=== PATIENT | female | born 1965 | race Caucasian/White ===

== ENCOUNTER 2016-10-28 10:44 | Emergency (ER) | payer MEDICAID ==
[~2016-10-28] VITALS: Wt 74.6 kg
[~2016-10-28 10:44] MED LIST: CLIN-73 PO
[2016-10-28] MEDS ORDERED: SODIUM CHLORIDE 0.9% 1L BAG IV* STA (15:42)
[2016-10-28] MEDS ORDERED: IBUPROFEN 600 MG TAB PO ONE (16:00)
[2016-10-28] MEDS ORDERED: CEFTRIAXONE 1 GM/50 ML (PMX) 50 ML IVPB ONE (16:00)
[2016-10-28 16:31] LABS: ADD UMIC YES; URINE BILIRUBIN (Dip) NEGATIVE (NEGATIVE); URINE BLOOD (Dip) TRACE (NEGATIVE); URINE COLOR YELLOW (YELLOW); URINE GLUCOSE (Dip) NEGATIVE (NEGATIVE); URINE KETONES (Dip) NEGATIVE (NEGATIVE); URINE LEUKOCYTE ESTERASE (Dip) NEGATIVE (NEGATIVE); URINE NITRITE (Dip) NEGATIVE (NEGATIVE); URINE TOTAL PROTEIN (Dip) TRACE (NEGATIVE); URINE UROBILINOGEN (Dip) 1.0 E.U./dL (0.1-1.0)
[2016-10-28 16:31] LABS: PROTIME 13.2 Sec (12.2-14.2)
[2016-10-28 16:32] LABS: PARTIAL THROMBOPLASTIN TIME 27.7 Sec (25.0-35.0)
[2016-10-28 16:34] LABS: BASOPHILS % 0.3 % (0.0-2.0); EOSINOPHILS % 0.4 % (0.0-7.0); HEMATOCRIT 31.9 % (37.0-47.0); HEMOGLOBIN 10.6 g/dl (12.0-16.0); LYMPHOCYTES # 1.1 10^3/ul (0.8-2.9); LYMPHOCYTES % 12.3 % (15.0-51.0); MEAN CORPUSCULAR HGB CONC 33.4 g/dl (32.0-37.0); MEAN PLATELET VOLUME 8.3 fl (7.4-10.4); MONOCYTE # 0.8 10^3/ul (0.3-0.9); MONOCYTES % 8.6 % (0.0-11.0); NEUTROPHIL # 6.9 10^3/ul (1.6-7.5); NEUTROPHILS % 78.4 % (39.0-77.0); PLATELET COUNT 248 10^3/UL (140-440); RED BLOOD COUNT 3.54 10^6/ul (4.20-5.40); RED CELL DISTRIBUTION WIDTH 15.8 % (11.5-14.5); UNCORRECTED WBC 8.8 10^3/ul (4.8-10.8); WHITE BLOOD COUNT 8.8 10^3/ul (4.8-10.8)
--- NOTE | 2016-10-28 16:34 | RADRPT ---
PROCEDURE: Chest Radiograph. CLINICAL INDICATION: Fever TECHNIQUE: Single frontal chest radiograph. COMPARISON: None available FINDINGS: A right chest wall port infusion catheter is in place. The cardiomediastinal silhouette is within n ormal limits. There is mild basilar atelectasis. No infiltrate or effusion is seen. The bones ar e intact. IMPRESSION: 1. No evidence of acute cardiopulmonary disease. RPTAT: KK .Kamlesh Goddard MD, MD Date Time Electronically viewed and signed by .Kamlesh Goddard MD, MD on 10/28/2016 16:33 .B/
[2016-10-28 16:37] LABS: CONDITION 1; LH ANALYZER COMMENTS 1
[2016-10-28 16:51] LABS: ALBUMIN 3.6 g/dl (3.3-4.9)
[2016-10-28 16:52] LABS: POTASSIUM 3.8 mmol/L (3.5-5.1)
[2016-10-28 16:53] LABS: BACTERIA,URINE FEW
[2016-10-28 16:54] LABS: BILIRUBIN,INDIRECT 0.5 mg/dl (0-1.1); BILIRUBIN,TOTAL 0.5 mg/dl (0.2-1.3); CREATININE 0.57 mg/dl (0.44-1.00)
[2016-10-28 16:55] LABS: ALBUMIN/GLOBULIN RATIO 1.24; CALCIUM 8.3 mg/dl (8.4-10.2); TOTAL PROTEIN 6.5 g/dl (6.1-8.1)
[2016-10-28 17:05] LABS: TROPONIN-I 0.065 ng/ml (0.00-0.12)
[2016-10-28 17:24] VITALS: TEMP 99
[2016-10-28] MEDS ORDERED: ALBU8.5H3 INH (17:31)
[2016-10-28] MEDS ORDERED: LORA10TA3 PO (17:31)
[2016-10-28] MEDS ORDERED: AZIT500T3 PO (17:31)
[2016-10-28] MEDS ORDERED: IBUP-1542 PO (17:31)
--- NOTE | 2016-10-28 17:38 | ERD ---
ER Documentation Chief Complaint Date/Time DATE: 10/28/16 TIME: 17:32 Chief Complaint cough and congestion for 4 days. chemo pt. fever since 3 days. HPI 51-year-old woman with a history of breast cancer presents with fever 1 day and 4 days of nasal congestion, rhinorrhea, cough. She has had no dysuria or increased urinary frequency, no hematuria, no chest pain or shortness of breath , no calf or leg swelling. Patient denies vomiting or diarrhea. ROS All systems reviewed and are negative except as per history of present illness. Medications Home Meds Active Scripts Loratadine* (Loratadine*) 10 Mg Tablet, 10 MG PO DAILY for NASAL CONGESTION, # 12 TAB Prov:PRADEEP ZAVALA MD 10/28/16 Ibuprofen* (Ibuprofen*) 600 Mg Tablet, 600 MG PO Q8 for FEVER, #30 TAB Prov:PRADEEP ZAVALA MD 10/28/16 Albuterol Sulfate* (Proair HFA*) 8.5 Gm Hfa.aer.ad, 2 PUFF INH Q6H Y for WHEEZING AND SOB, #1 INHALER Prov:PRADEEP ZAVALA MD 10/28/16 Azithromycin* (Zithromax*) 500 Mg Tablet, 500 MG PO DAILY for 5 Days, TAB Prov:PRADEEP ZAVALA MD 10/28/16 Discontinued Scripts Clindamycin Hcl* (Clindamycin Hcl*) 300 Mg Capsule, 300 MG PO Q6 for 7 Days, CAP Prov:ABIDA REED MD 05/06/16 Allergies Allergies: Coded Allergies: No Known Allergy (Unverified , 10/28/16) PMhx/Soc Breast cancer post mastectomy and has had chemotherapy 8 times previously History of Surgery: Yes (left breast bx) Anesthesia Reaction: No Hx Neurological Disorder: No Hx Respiratory Disorders: No Hx Cardiac Disorders: No Hx Psychiatric Problems: No Hx Miscellaneous Medical Probl: Yes (left breast cancer) Hx Alcohol Use: No Hx Substance Use: No Hx Tobacco Use: No Smoking Status: Never smoker FmHx Family History: No diabetes Physical Exam Vitals Vital Signs Date Time Temp Pulse Resp B/P Pulse Ox O2 Delivery O2 Flow Rate FiO2 10/28/16 17:24 99.0 80 15 92/55 96 Room Air 10/28/16 15:34 99.8 78 17 114/65 100 Room Air 10/28/16 10:52 102.2 102 20 102/55 100 Physical Exam GENERAL: Well-developed, well-nourished, well-hydrated, in no apparent distress , looks nontoxic in appearance, febrile HEENT: Moist mucous membranes, positive nasal congestion and rhinorrhea, no cervical spine tenderness or step-off deformities, no goiter, no jaundice or icterus, extraocular movements intact without pain. No submandibular induration , and no pharyngeal erythema NEURO: Alert and oriented 3, cranial nerves II through XII intact bilaterally, pupils equal round reactive to light, no focal deficits or facial asymmetry, sensation intact distally Strength 5/5 in upper and lower extremities bilaterally CARDIAC: Regular rate and rhythm, no murmurs rubs or gallops LUNGS: Clear bilaterally no wheezing crackles or stridor ABDOMEN: Soft nontender, no guarding, no rigidity, no rebound, no psoas sign no obturator sign. Normoactive bowel sounds SKIN: Warm and dry to touch, chronic surgical changes of the left breast without overlying skin erythema or induration, skin is without ulcers EXTREMITIES: No clubbing cyanosis or edema, calves are bilaterally symmetrical, no Homans sign, no popliteal cord sign. Distal pulses equal and bilateral PSYCH: Normal affect without agitation or irritability Result Diagram: 10/28/16 1600 10/28/16 1600 Results 24 hrs Laboratory Tests Test 10/28/16 15:55 10/28/16 16:00 Urine Bacteria FEW Urine Bilirubin NEGATIVE Urine Clarity CLEAR Urine Color YELLOW Urine Epithelial Cells MODERATE Urine Glucose NEGATIVE% Urine Hemoglobin TRACE Urine Ketones NEGATIVE Urine Leukocyte Esterase NEGATIVE Urine Microscopic RBC 2-5/HPF Urine Microscopic WBC 2-5/HPF Urine Nitrite NEGATIVE Urine Specific [place] 1.020 Urine Total Protein TRACE Urine Urobilinogen 1.0 E.U./dL Urine pH 6.0 Activated Partial Thromboplast Time 27.7Sec Alanine Aminotransferase (ALT/SGPT) 54IU/L Albumin 3.6g/dl Albumin/Globulin Ratio 1.24 Alkaline Phosphatase 79IU/L Anion Gap 17 Aspartate Amino Transf (AST/SGOT) 30IU/L Basophils # 0.010^3/ul Basophils % 0.3% Blood Morphology Comment Blood Urea Nitrogen 18mg/dl Calcium Level 8.3mg/dl Carbon Dioxide Level 24mmol/L Chloride Level 102mmol/L Creatinine 0.57mg/dl Direct Bilirubin 0.00mg/dl Eosinophils # 0.010^3/ul Eosinophils % 0.4% Globulin 2.90g/dl Glucose Level 106mg/dl Hematocrit 31.9% Hemoglobin 10.6g/dl INR International Normalized Ratio 1.00 Indirect Bilirubin 0.5mg/dl Lactic Acid Level 0.7mmol/L Lipase 60U/L Lymphocytes # 1.110^3/ul Lymphocytes % 12.3% Mean Corpuscular Hemoglobin 30.0pg Mean Corpuscular Hemoglobin Concent 33.4g/dl Mean Corpuscular Volume 90.0fl Mean Platelet Volume 8.3fl Monocytes # 0.810^3/ul Monocytes % 8.6% Neutrophils # 6.910^3/ul Neutrophils % 78.4% Nucleated Red Blood Cells # 0.010^3/ul Nucleated Red Blood Cells % 0.0/100WBC Platelet Count 96009^3/UL Potassium Level 3.8mmol/L Prothrombin Time 13.2Sec Prothrombin Time Ratio 1.0 Red Blood Count 3.5410^6/ul Red Cell Distribution Width 15.8% Sodium Level 139mmol/L Total Bilirubin 0.5mg/dl Total Protein 6.5g/dl Troponin I 0.065ng/ml White Blood Count 8.810^3/ul Current Medications Medications (Trade) Dose Ordered Sig/Jamin Route PRN Reason Start Time Stop Time Status Last Admin Dose Admin Sodium Chloride (NS) 2,310 ml BOLUS OVER 2 HOURS STAT IV* 10/28/16 15:42 10/28/16 15:44 DC 10/28/16 16:16 Ibuprofen 600 mg 600 mg ONCE ONCE PO 10/28/16 16:00 10/28/16 16:01 DC 10/28/16 16:15 Ceftriaxone Sodium (Rocephin) 50 ml @ 100 mls/hr ONCE ONCE IVPB 10/28/16 16:00 10/28/16 16:29 DC 10/28/16 16:15 Heparin Sodium (Porcine) (Heparin Flush (1 Unit/ml)) 0.5 unit ONCE STAT CATHETER 10/28/16 17:29 10/28/16 17:30 DC Procedures/MDM IV line was established patient was placed on telemetry monitor rhythm strip revealed a sinus rhythm at about 80 bpm with upright P and T waves. Patient was febrile. I administered about 2 L normal saline intravenously, ibuprofen 600 mg p.o. for fever, and ceftriaxone 1 g IV. One view chest x-ray performed, read by me there is a catheter in the right chest, no acute infiltrates, no pneumothorax. EKG performed, read by me: 86 bpm, normal sinus rhythm, normal axis, no acute ST segment changes, narrow QRS complex, with good R-wave progression in precordial leads. CBC was unremarkable, electrolytes normal, liver function tests were normal, troponin was negative, lactic acid was low at 0.7. Urinalysis was negative for infection. Patient defervesced and her vital signs remained normal. I do not suspect sepsis and feel she can be managed as an outpatient given her history of breast cancer and active chemotherapy I will prescribe azithromycin, as well as albuterol pump as needed for cough should it recur. Differential diagnoses considered, included but not limited to acute coronary syndrome, pulmonary embolism, aortic dissection, abdominal aortic aneurysm, sepsis, stroke, meningitis, encephalitis, pneumonia, appendicitis, cholecystitis , bowel obstruction, pyelonephritis, nephrolithiasis, cystitis, as well as metabolic, hematologic, and electrolyte abnormalities. As well as abscess, cellulitis, fractures, and dislocations. Patient feels much better at this time, and vital signs are normal, symptoms have improved. I did give strict instructions to return to the ED if symptoms continue or worsen, patient will otherwise follow-up with primary care physician. Patient understood instructions and agreed to plan. Departure Diagnosis: Primary Impression: Acute bronchitis Bronchitis organism: unspecified organism Qualified Code: J20.9 - Acute bronchitis, unspecified organism Additional Impression: Breast cancer Breast location: unspecified site of breast Patient gender: female Laterality: left Qualified Code: C50.912 - Malignant neoplasm of left female breast, unspecified site of breast Condition: Good Patient Instructions: Bronchitis, Antiobiotic Treatment (Adult) PRADEEP ZAVALA MD Oct 28, 2016 17:38
[2016-10-28 17:57] VITALS: BP 97/57; PULSE 67; RESP 14
== END 2016-10-28 17:39 | disposition home or self-care (01) ==
LOC: E/R 10:44
DX: J20.9 Acute bronchitis, unspecified (principal); R40.2252 Coma scale, best verbal response, oriented, at arrival to emergency department; C50.912 Malignant neoplasm of unspecified site of left female breast; R40.2362 Coma scale, best motor response, obeys commands, at arrival to emergency department; R40.2142 Coma scale, eyes open, spontaneous, at arrival to emergency department; R50.9 Fever, unspecified; R11.10 Vomiting, unspecified
CPT/HCPCS: 36415; 71010; 80053; 81001; 83605; 83690; 84484; 85025; 85610; 85730; 87040; 87086; 93005; 96374; J0696; J1642; J7030; Z7502; Z7610; 81003

== ENCOUNTER 2016-12-27 09:03 | Day surgery (SDC) | payer MEDICAID ==
[2016-12-27] VITALS (27 sets, daily range): BP systolic 113–165; BP diastolic 58–78; PULSE 54–99; RESP 14–19
[~2016-12-27] VITALS: Ht 152.4 cm; Wt 73.0 kg
[~2016-12-27 09:03] MED LIST changes: +ALBU8.5H3 INH; +AZIT500T3 PO; +CEFAZOLIN 1 GM/50 ML (PMX) 50 ML IVPB SCH; -CLIN-73 PO; +IBUP-1542 PO; +LORA10TA3 PO; +SOD CHLORIDE 0.9% 1,000 ML IV SCH
[2016-12-27 10:44] LABS: ADD SCAN DIFF NO
[2016-12-27 10:48] LABS: BASOPHIL # 0.1 10^3/ul (0.0-0.1); BASOPHILS % 0.8 % (0.0-2.0); EOSINOPHILS # 1.1 10^3/ul (0.0-0.5); EOSINOPHILS % 17.1 % (0.0-7.0); HEMATOCRIT 36.7 % (37.0-47.0); HEMOGLOBIN 11.1 g/dl (12.0-16.0); LYMPHOCYTES # 1.8 10^3/ul (0.8-2.9); LYMPHOCYTES % 28.4 % (15.0-51.0); MEAN CORPUSCULAR HEMOGLOBIN 27.7 pg (29.0-33.0); MEAN CORPUSCULAR HGB CONC 30.2 g/dl (32.0-37.0); MEAN CORPUSCULAR VOLUME 91.5 fl (82.0-101.0); MONOCYTE # 0.5 10^3/ul (0.3-0.9); MONOCYTES % 7.4 % (0.0-11.0); NEUTROPHIL # 2.9 10^3/ul (1.6-7.5); PLATELET COUNT 275 10^3/UL (140-415); RED BLOOD COUNT 4.01 10^6/ul (4.20-5.40); RED CELL DISTRIBUTION WIDTH 14.7 % (11.5-14.5); WHITE BLOOD COUNT 6.4 10^3/ul (4.8-10.8)
[2016-12-27 11:33] LABS: INR 1.03; PROTIME 13.5 Sec (12.2-14.2); PT RATIO 1.1
[2016-12-27 11:34] LABS: PARTIAL THROMBOPLASTIN TIME 26.2 Sec (25.0-35.0)
[2016-12-27 12:19] LABS: CALCIUM 8.9 mg/dl (8.4-10.2); CREATININE 0.55 mg/dl (0.44-1.00)
[2016-12-27] MEDS ORDERED: DIPHENHYDRAMINE 50 MG INJ IV PRN (13:00)
[2016-12-27] MEDS ORDERED: LABETALOL HCL 20MG INJ IV PRN (13:00)
[2016-12-27] MEDS ORDERED: EPHEDrine SULFATE 50 MG/5 ML SYG IV PRN (13:00)
[2016-12-27] MEDS ORDERED: ONDANSETRON 4 MG INJ IV PRN ×2 (13:00→13:30)
[2016-12-27] MEDS ORDERED: HYDROmorphONE (0.2 MG/ML) 10ML SYG IV PRN ×2 (13:00)
[2016-12-27] MEDS ORDERED: FENTAnyl 50 MCG/ML VIAL IV PRN ×3 (13:00)
[2016-12-27] MEDS ORDERED: MEPERIDINE 25 MG INJ IV PRN (13:00)
[2016-12-27] MEDS ORDERED: morphine 2 MG INJ IV PRN (13:30)
[2016-12-27] MEDS ORDERED: CEFAZOLIN 1 GM INJ ONE (13:34)
[2016-12-27] MEDS ORDERED: HYDROmorphONE 2 MG/ML SYG ONE (13:50)
[2016-12-27] MEDS ORDERED: SUCCINYLCHOLINE CHLORIDE 100 MG/5 ML SYG IV ONE (13:54)
[2016-12-27] MEDS ORDERED: METOPROLOL 5 MG INJ ONE (14:25)
[2016-12-27] MEDS ORDERED: LIDOCAINE 2% (SDV) 5 ML INJ ONE (14:29)
[2016-12-27] MEDS ORDERED: PROPOFOL 20 ML ONE (14:29)
[2016-12-27] MEDS ORDERED: MIDAZOLAM 1 MG/ML 2 ML INJ ONE (14:29)
[2016-12-27] MEDS ORDERED: ONDANSETRON 4 MG INJ ONE (14:29)
[2016-12-27] MEDS ORDERED: DEXAMETHASONE 4 MG/ML 1 ML INJ ONE (14:30)
--- NOTE | 2016-12-27 14:52 | OPR ---
DATE OF OPERATION: 12/27/2016 PREOPERATIVE DIAGNOSIS: Recurrent cancer, left breast and left axilla. POSTOPERATIVE DIAGNOSIS: Recurrent cancer, left breast and left axilla. OPERATION PERFORMED: Reexcision left partial mastectomy and completion left axillary dissection. ANESTHESIA: General. ANESTHESIOLOGIST: Carla London CRNA SURGEON: Jonathan Rhodes MD ASSISTANTS: Dr. Hitchcock and Dr. Gomez. INDICATIONS FOR PROCEDURE: The patient is a 51-year-old female I recently treated for invasive canc er of her left breast. The pathology of her first surgery had clear margins and axillary dissection was done; however, in the postoperative period she developed a mass on her surgical scar. Needle b iopsy was positive for recurrent cancer. In view of this, we did a left axillary ultrasound which s howed a nodule. Nodule was biopsied and also revealed cancer. Therefore, she was scheduled for reex cision left partial mastectomy and completion axillary dissection. DESCRIPTION OF PROCEDURE: Patient was brought to the operating theater, placed under general anesth esia. The left breast and axillary regions were prepped and draped in usual sterile fashion. Previ ous surgical incisional scar in the left axilla was reincised. Subcutaneous tissue was dissected do wn through the clavipectoral fascia. There was a significant amount of scar tissue. After thorough inspection, there was not obvious area of metastatic disease; however, discussion with the radiolog ist, Dr. Michelle Martini she stated that the nodule was small and against the chest wall. Therefore , significant tissue against the chest wall, which consisted of scar and possible palpable nodules w as then resected and sent for pathologic analysis. Additional tissue was also palpated slightly mor e lateral. This tissue was also removed. The wound was irrigated. Minimal bleeding was controlled with cautery. A #10 flat Malik-Chaudhry drain was brought through the left mid axillary line, cut t o size and laid within the axilla. It was secured in place with 2-0 nylon suture in the standard fa shion and the incision was then closed with 4-0 PDS suture in subcuticular fashion. Attention was then directed to performing the reexcision partial mastectomy. The previous surgical scar was excised in elliptical fashion and subcutaneous tissue was dissected with cautery. Wide cir cumferential dissection of this tissue which include the nodule then took place on the pectoralis ma harjeet muscle. Specimen was transected off the pectoralis major muscle, oriented and sent for [facility] t pathologic analysis. The wound was irrigated. Minimal bleeding was controlled with cautery, and the skin was closed with 4-0 Vicryl suture in subcuticular fashion. Benzoin and Steri-Strips were a pplied to both incisions. The patient tolerated procedure well. Estimated blood loss was 20 mL. T here were no complications and the patient was transported in stable condition to the recovery room. Dictated By: JONATHAN RHODES MD TL/NTS Conf#: [id number] DID#: [id number] CC: PARUL GOMEZ MD; KEIRA HITCHCOCK MD;*End*
[2016-12-27] MEDS: HYDROmorphONE (0.2 MG/ML) 10ML SYG IV PRN ×2 (15:14→15:26)
--- NOTE | 2016-12-27 16:42 | HP ---
DATE OF ADMISSION: 12/27/2016 HISTORY OF PRESENT ILLNESS: The patient is a 51-year-old unfortunate female who was treated for inv asive cancer of the left breast. The patient underwent a partial mastectomy and pathology showed cl ear margins. In the postoperative period patient developed a mass on her surgical scar and needle bi opsy was positive for recurrent cancer. Left axilla ultrasound showed nodule and subsequent biopsy also revealed cancer. The patient was brought to the hospital and underwent reexcision left partial mastectomy and completion of left axillary dissection. Postoperatively, the patient was very jennifer rgic but arousable, and complained of pain. The patient will be admitted for further evaluation and management. PAST MEDICAL HISTORY: Positive for cancer of the left breast. Otherwise, other than that negative. PAST SURGICAL HISTORY: The patient had left partial mastectomy and axillary dissection in March 2016 . FAMILY HISTORY: Positive for breast cancer. The patient's cousin at a very early age. SOCIAL HISTORY: Patient lives at home with her family, patient denies any tobacco use, denies any a lcohol use, denies any illicit drug use. ALLERGIES: NO KNOWN ALLERGIES. HOME MEDICATIONS: None. REVIEW OF SYSTEMS: A 12-point review of systems is negative unless what mentioned in the HPI. PHYSICAL ASSESSMENT: GENERAL: This is a well-developed, well-nourished female currently is lethargic, but easily arousab le, alert and oriented to name and situation. VITAL SIGNS: Temperature is 98.2, pulse is 62, blood pressure is 156/75, respiratory rate 19, oxyge n saturation 100% on 2 liters nasal cannula. HEENT: Head is atraumatic, normocephalic. Pupils equal, round, reactive to light and accommodation . Oral mucosa is pink and moist. NECK: Supple. Cervical lymphadenopathy, no thyromegaly. CHEST: Lungs clear bilaterally. There is no rhonchi, wheezes, rales noted. CARDIOVASCULAR: Normal S1, S2. No murmurs, gallops, clicks, rubs noted. BREASTS: Left breast status post surgery with a dry, clean and intact dressing and left axillary JV P. ABDOMEN: Round, soft, nondistended, nontender. Bowel sounds present. There is no guarding, no devang ound tenderness. EXTREMITIES: There is no edema, clubbing, cyanosis. Pulses equal bilaterally 2+. SKIN: There is no rash, petechiae noted. NEUROLOGIC: Patient is awake, alert and oriented x3. LABORATORY DATA: On admission, CBC: White blood cells 6.4, hemoglobin 11.1, hematocrit 36.7, plate lets 275. Chemistry: Sodium is 141, potassium 4.1, chloride 105, carbon dioxide 25, anion gap 15, BUN is 14, creatinine 0.55, glucose 107. PT 13.5, INR is 1.03, PTT is 26.2. ASSESSMENT AND PLAN: Recurrent cancer of the left breast and left axilla status post re-excision of left partial mastectomy and completion of left axillary dissection. Continue Tylenol and morphine for pain and Zofran p.r.n. for nausea. Continue IV fluids. Continue incentive spirometer q.1 hour patient is awake, follow up surgical recommendation. CBC and BMP tomorrow. Continue sequential com pression device for deep venous thrombosis prophylaxis. Further recommendations based on clinical c ourse. Plan of care discussed with Dr. Jackson. Dictated By: JOHNATHAN KHALIL HUMAN RESOURCES OPERATIONS MANAGER for ALLA JACKSON MD SR/NTS Conf#: [id number] DID#: [id number]
[2016-12-27] MEDS: D5W-0.45 NACL + KCL 20 MEQ 1,000 ML IV SCH ×2 (18:13→21:30)
[2016-12-27] MEDS: ACETAMINOPHEN 1000MG/100ML IV 100 ML IVPB PRN (20:07)
[2016-12-28] MEDS: D5W-0.45 NACL + KCL 20 MEQ 1,000 ML IV SCH ×2 (01:37→12:51)
[2016-12-28 04:00] VITALS: BP 129/58; PULSE 60; RESP 17
[2016-12-28] MEDS: ACETAMINOPHEN 1000MG/100ML IV 100 ML IVPB PRN (06:33)
[2016-12-28 07:39] VITALS: BP 124/59; RESP 16
[2016-12-28 10:24] LABS: ADD SCAN DIFF NO
[2016-12-28 10:31] LABS: BASOPHILS % 0.1 % (0.0-2.0); EOSINOPHILS % 0.1 % (0.0-7.0); HEMATOCRIT 36.1 % (37.0-47.0); HEMOGLOBIN 11.1 g/dl (12.0-16.0); LYMPHOCYTES # 0.9 10^3/ul (0.8-2.9); LYMPHOCYTES % 10.9 % (15.0-51.0); MEAN CORPUSCULAR HEMOGLOBIN 28.2 pg (29.0-33.0); MEAN CORPUSCULAR HGB CONC 30.7 g/dl (32.0-37.0); MEAN CORPUSCULAR VOLUME 91.9 fl (82.0-101.0); MEAN PLATELET VOLUME 10.3 fl (7.4-10.4); MONOCYTE # 0.6 10^3/ul (0.3-0.9); MONOCYTES % 7.1 % (0.0-11.0); NEUTROPHIL # 6.8 10^3/ul (1.6-7.5); NEUTROPHILS % 81.6 % (39.0-77.0); PLATELET COUNT 290 10^3/UL (140-415); RED BLOOD COUNT 3.93 10^6/ul (4.20-5.40); RED CELL DISTRIBUTION WIDTH 14.6 % (11.5-14.5); WHITE BLOOD COUNT 8.3 10^3/ul (4.8-10.8)
[2016-12-28 10:50] LABS: POTASSIUM 3.7 mmol/L (3.5-5.1)
[2016-12-28 10:53] LABS: CREATININE 0.49 mg/dl (0.44-1.00)
[2016-12-28 10:54] LABS: CALCIUM 8.6 mg/dl (8.4-10.2)
--- NOTE | 2016-12-28 13:12 | PDOCDIS ---
Discharge Instructions CONDITION Patient Condition: Stable HOME CARE INSTRUCTIONS: Diet Instructions: RegularSpecial Diet: REGULAR ACTIVITY: Activity Restrictions: Slowly Increase Activity Rest between Activity Avoid heavy lifting Do not Drive Avoid Heavy Housework Bathing Restrictions: Sponge Bath FOLLOW UP/APPOINTMENTS Appointments FU with Primary MD in 1 week FU with Surgery MD in 1 week. Call 911 or go to the nearest hospital if symptoms worsen. Patient verbalized understanding of discharge instructions. staff/patient/ family. IBAN LY Dec 28, 2016 13:12
[2016-12-28] MEDS ORDERED: DOCU-144 PO (13:13)
[2016-12-28] MEDS ORDERED: PANT40TA3 PO (13:13)
--- NOTE | 2016-12-28 13:42 | PN ---
DATE: SUBJECTIVE: No complaints. Status post re-excision, partial mastectomy and completion axillary dis section for recurrent cancer of the left breast. The patient is doing fine. No complaints. VITAL SIGNS: Temperature 97.9, heart rate 57, respiratory rate 16, blood pressure 124/59, saturatio ns 99% on room air. LABORATORY: Today WBC 8300 with 81% segmented, hemoglobin 11.1, hematocrit 36.1. BUN, creatinine, s odium and potassium are within normal limits. Malik-Chaudhry drainage is serosanguineous, only 20 mL . PLAN: The patient will be discharged home today. Care of the Malik-Chaudhry will be taught to the pa tient by the nurse. Patient to remove the wrap around dressing after 4 days, but leave the other medhat ssing is intact. Patient to call Dr. Betancourt' office and make an appointment for a followup. Dictated By: KEIRA HITCHCCOK MD PS/NTS Conf#: [id number] DID#: [id number] CC: MEREDITH BETANCOURT MD;*EndCC*
== END 2016-12-28 13:35 | disposition home or self-care (01) ==
LOC: SDS 09:03 → MS1 18:40 → SDS 12-28 13:35
PROVIDERS: ATTEND Surgery Surgical Oncology
DX: C50.912 Malignant neoplasm of unspecified site of left female breast (principal); E66.9 Obesity, unspecified; Z68.31 Body mass index [BMI] 31.0-31.9, adult
CPT/HCPCS: 19301; 38500; 80048; 85025; 85610; 85730; 88307; J0131; J0330; J0690; J1100; J1170; J2250; J2405; J3010; J3480; Z7512; Z7610

== ENCOUNTER 2017-05-05 13:51 | Emergency (ER) | payer MEDICAID ==
[~2017-05-05] VITALS: Ht 170.2 cm; Wt 73.0 kg
[~2017-05-05 13:51] MED LIST changes: -ALBU8.5H3 INH; -AZIT500T3 PO; -CEFAZOLIN 1 GM/50 ML (PMX) 50 ML IVPB SCH; +DOCU-144 PO; -IBUP-1542 PO; -LORA10TA3 PO; +PANT40TA3 PO; -SOD CHLORIDE 0.9% 1,000 ML IV SCH
[2017-05-05 13:54] VITALS: Ht 170.2 cm; Wt 73.0 kg
[2017-05-05] MEDS ORDERED: ONDANSETRON 4 MG INJ IV STA (17:34)
[2017-05-05] MEDS ORDERED: SOD CHLORIDE 0.9% 1,000 ML IV STA (17:34)
[2017-05-05] MEDS ORDERED: MECLIZINE 12.5 MG TAB PO ONE (18:00)
[2017-05-05] MEDS ORDERED: NOL20 PO (18:11)
[2017-05-05 18:26] LABS: BASOPHILS % 0.4 % (0.0-2.0); EOSINOPHILS # 0.1 10^3/ul (0.0-0.5); EOSINOPHILS % 1.9 % (0.0-7.0); HEMATOCRIT 36.4 % (37.0-47.0); HEMOGLOBIN 12.1 g/dl (12.0-16.0); LYMPHOCYTES # 1.1 10^3/ul (0.8-2.9); LYMPHOCYTES % 16.8 % (15.0-51.0); MEAN CORPUSCULAR HEMOGLOBIN 29.4 pg (29.0-33.0); MEAN CORPUSCULAR HGB CONC 33.2 g/dl (32.0-37.0); MEAN CORPUSCULAR VOLUME 88.3 fl (82.0-101.0); MONOCYTE # 0.3 10^3/ul (0.3-0.9); NEUTROPHILS % 76.9 % (39.0-77.0); PLATELET COUNT 233 10^3/UL (140-415); RED BLOOD COUNT 4.12 10^6/ul (4.20-5.40); RED CELL DISTRIBUTION WIDTH 13.4 % (11.5-14.5); WHITE BLOOD COUNT 6.7 10^3/ul (4.8-10.8)
[2017-05-05 18:52] LABS: ALBUMIN 4.4 g/dl (3.3-4.9); ALBUMIN/GLOBULIN RATIO 1.46; BILIRUBIN,INDIRECT 0.6 mg/dl (0-1.1); BILIRUBIN,TOTAL 0.6 mg/dl (0.2-1.3); CALCIUM 9.4 mg/dl (8.4-10.2); CREATININE 0.54 mg/dl (0.44-1.00); POTASSIUM 3.9 mmol/L (3.5-5.1); TOTAL PROTEIN 7.4 g/dl (6.1-8.1)
[2017-05-05 20:14] VITALS: TEMP 97.4
[2017-05-05] MEDS ORDERED: MECL-77 PO (20:26)
[2017-05-05] MEDS ORDERED: ONDA4TAB14 PO (20:26)
--- NOTE | 2017-05-05 20:41 | ERD ---
ER Documentation Chief Complaint Date/Time DATE: 05/05/17 TIME: 20:37 Chief Complaint Pt with dizziness and vomiting X 2 hours. HPI This 51-year-old female presents with 2 hours of acute onset of feeling like the room is spinning leading to vomiting. She still has that sensation. She is unsteady on her feet. She denies any trauma. She has had no recent ear pain. No fevers. She has no focal weaknesses. ROS All systems reviewed and are negative except as per history of present illness. Medications Home Meds Active Scripts Ondansetron (Ondansetron Odt) 4 Mg Tab.rapdis, 4 MG PO Q6H Y for NAUSEA AND/OR VOMITING, #10 TAB Prov:LANCE MAO DO 05/05/17 Meclizine Hcl* (Meclizine Hcl*) 25 Mg Tablet, 25 MG PO Q8H Y for DIZZINESS, #30 TAB Prov:LANCE MAO DO 05/05/17 Reported Medications Tamoxifen Citrate* (Tamoxifen Citrate*) 20 Mg Tab, 20 MG PO DAILY, TAB 05/05/17 Discontinued Scripts Pantoprazole* (Protonix*) 40 Mg Tablet.dr, 40 MG PO DAILY, #20 TAB Prov:IBAN LY 12/28/16 Docusate Sodium* (Colace*) 100 Mg Capsule, 100 MG PO BID, #30 CAP Prov:IBNA LY 12/28/16 Allergies Allergies: Coded Allergies: No Known Allergy (Unverified , 05/05/17) PMhx/Soc History of Surgery: Yes (LEFT BREAST CANCER SX) Anesthesia Reaction: No Hx Neurological Disorder: No Hx Respiratory Disorders: No Hx Cardiac Disorders: No Hx Psychiatric Problems: No Hx Miscellaneous Medical Probl: Yes (LEFT BREAST CA) Hx Alcohol Use: No Hx Substance Use: No Hx Tobacco Use: No Smoking Status: Never smoker Physical Exam Vitals Vital Signs Date Time Temp Pulse Resp B/P Pulse Ox O2 Delivery O2 Flow Rate FiO2 05/05/17 20:14 97.4 67 20 130/67 100 Room Air 05/05/17 13:54 97.4 77 20 128/79 100 Physical Exam Const: [] Mild distress Head: Atraumatic Eyes: Normal Conjunctiva, EOMI, PE RL ENT: Normal External Ears, Nose and Mouth. Tympanic membranes within normal limits bilaterally Neck: Full range of motion..~ No meningismus. Resp: Clear to auscultation bilaterally Cardio: Regular rate and rhythm, no murmurs Abd: Soft, non tender, non distended. Normal bowel sounds Skin: No petechiae or rashes Back: No midline or flank tenderness Ext: No cyanosis, or edema Neur: Awake and alert and oriented 3, cranial nerves II through XII intact, no cerebellar deficits, no focal neurological deficits, normal gait Psych: Normal Mood and Affect Result Diagram: 05/05/17 1800 05/05/17 1800 Results 24 hrs Laboratory Tests Test 05/05/17 18:00 White Blood Count 6.710^3/ul Red Blood Count 4.1210^6/ul Hemoglobin 12.1g/dl Hematocrit 36.4% Mean Corpuscular Volume 88.3fl Mean Corpuscular Hemoglobin 29.4pg Mean Corpuscular Hemoglobin Concent 33.2g/dl Red Cell Distribution Width 13.4% Platelet Count 37306^3/UL Mean Platelet Volume 10.0fl Neutrophils % 76.9% Lymphocytes % 16.8% Monocytes % 4.0% Eosinophils % 1.9% Basophils % 0.4% Nucleated Red Blood Cells % 0.0/100WBC Neutrophils # (Manual) 5.210^3/ul Lymphocytes # 1.110^3/ul Monocytes # 0.310^3/ul Eosinophils # 0.110^3/ul Basophils # 0.010^3/ul Nucleated Red Blood Cells # 0.010^3/ul Sodium Level 138mmol/L Potassium Level 3.9mmol/L Chloride Level 102mmol/L Carbon Dioxide Level 25mmol/L Anion Gap 15 Blood Urea Nitrogen 11mg/dl Creatinine 0.54mg/dl Glucose Level 127mg/dl Calcium Level 9.4mg/dl Total Bilirubin 0.6mg/dl Direct Bilirubin 0.00mg/dl Indirect Bilirubin 0.6mg/dl Aspartate Amino Transf (AST/SGOT) 25IU/L Alanine Aminotransferase (ALT/SGPT) 38IU/L Alkaline Phosphatase 81IU/L Total Protein 7.4g/dl Albumin 4.4g/dl Globulin 3.00g/dl Albumin/Globulin Ratio 1.46 Lipase 79U/L Current Medications Medications (Trade) Dose Ordered Sig/Jamin Route PRN Reason Start Time Stop Time Status Last Admin Dose Admin Sodium Chloride (NS) 1,000 ml @ 1,000 mls/hr Q1H STAT IV 05/05/17 17:34 05/05/17 18:33 DC 05/05/17 18:15 Ondansetron HCl (Zofran Inj) 4 mg ONCE STAT IV 05/05/17 17:34 05/05/17 17:39 DC 05/05/17 18:15 Meclizine HCl (Antivert) 25 mg ONCE ONCE PO 05/05/17 18:00 05/05/17 18:01 DC 05/05/17 18:15 Procedures/MDM Acute vertigo that is likely peripheral in origin. Workup was performed no signs of urinary tract infection any other infection. No electrolyte imbalances. Completely normal neuro exam. Patient was given Zofran and Antivert as well as a liter of IV fluid. Is almost completely resolved her symptoms. She was feeling much better. I have low suspicion for central cause of vertigo or for acute CVA. I am giving her primary care follow-up in the next 2 3 days as well as instructions to see an ENT if this continues. I discharging her with Antivert and Zofran ODT. Departure Diagnosis: Primary Impression: Peripheral vertigo Additional Impression: Acute vomiting Condition: Stable Patient Instructions: Inner Ear Problems: Causes of Dizziness (Vertigo), Vertigo, Unspecified Additional Instructions: i Consigue un referral para un ENT si sigue. un Llame al doctor MAANA y kobe gene EVELINE PARA DENTRO DE 2-3 GRAYSON.Dgale a la secretaria que nosotros le instruimos hacer esta eveline.Avise o llame si walker condicin se empeora antes de la eveline. Regresa aqui si peor o no mejor. LANCE MAO DO May 05, 2017 20:41
[2017-05-05 20:46] VITALS: BP 110/57; PULSE 59; RESP 18
== END 2017-05-05 20:47 | disposition home or self-care (01) ==
LOC: E/R 13:51
DX: H81.399 Other peripheral vertigo, unspecified ear (principal); R11.10 Vomiting, unspecified; Z85.3 Personal history of malignant neoplasm of breast
CPT/HCPCS: 36415; 80053; 83690; 85025; 96374; J2405; J7030; Z7502; Z7610

== ENCOUNTER 2017-08-21 08:41 | Day surgery (SDC) | payer MEDICAID ==
[~2017-08-21] VITALS: Ht 154.9 cm; Wt 72.7 kg
[2017-08-21] VITALS (11 sets, daily range): BP systolic 112–140; BP diastolic 56–62; PULSE 65–90; RESP 10–20; Ht 154.9 cm; Wt 72.7 kg
[~2017-08-21 08:41] MED LIST changes: +CEFAZOLIN 1 GM INJ ONE; -DOCU-144 PO; +MECL-77 PO; +NOL20 PO; +ONDA4TAB14 PO; -PANT40TA3 PO
[2017-08-21] MEDS ORDERED: CEFAZOLIN 2 GM/50 ML (PMX) 50 ML IVPB SCH (09:00)
[2017-08-21] MEDS ORDERED: SOD CHLORIDE 0.9% 1,000 ML IV SCH (09:00)
[2017-08-21] MEDS ORDERED: MEPERIDINE 25 MG INJ IV PRN (15:30)
[2017-08-21] MEDS ORDERED: ONDANSETRON 4 MG INJ IV PRN (15:30)
[2017-08-21] MEDS ORDERED: DIPHENHYDRAMINE 50 MG INJ IV PRN (15:30)
[2017-08-21] MEDS ORDERED: PROCHLORPERAZINE 10 MG INJ IV PRN (15:30)
[2017-08-21] MEDS ORDERED: HYDROmorphONE (0.2 MG/ML) 10ML SYG IV PRN (15:30)
[2017-08-21] MEDS ORDERED: FENTAnyl 50 MCG/ML VIAL IV PRN (15:30)
[2017-08-21] MEDS ORDERED: OXYCODONE/ACETAMINOPHEN (5/325) TAB PO PRN (15:30)
[2017-08-21] MEDS ORDERED: MIDAZOLAM 1 MG/ML 2 ML INJ ONE (16:13)
[2017-08-21] MEDS ORDERED: PROPOFOL 20 ML ONE (16:15)
[2017-08-21] MEDS ORDERED: LIDOCAINE 2% (SDV) 5 ML INJ ONE (16:15)
[2017-08-21] MEDS ORDERED: FENTAnyl 50 MCG/ML VIAL ONE (16:16)
[2017-08-21] MEDS ORDERED: ONDANSETRON 4 MG INJ ONE (16:34)
[2017-08-21] MEDS ORDERED: FAMOTIDINE 20 MG INJ ONE (16:34)
[2017-08-21] MEDS ORDERED: DEXAMETHASONE 4 MG/ML 1 ML INJ ONE (16:34)
[2017-08-21] MEDS ORDERED: HYDROmorphONE 2 MG/ML SYG ONE (16:36)
--- NOTE | 2017-08-21 16:46 | SIPON ---
Date/Time of Note Date/Time of Note DATE: 08/21/17 TIME: 16:45 Operative Report Preoperative Diagnosis Axillary recurrence of left breast cancer Postoperative Diagnosis Same Operation/Procedure Performed Needle directed excision of axillary recurrence of left breast cancer Surgeon see signature line assistant professor of biology Dr Dickens Anesthesia: general Estimated blood loss: 0 - 10 ml's Transfusion Required none Specimen Left axillary specimen Grafts/Implants none Complications none MEREDITH BETANCOURT MD Aug 21, 2017 16:46
--- NOTE | 2017-08-21 21:00 | OPR ---
DATE OF OPERATION: 08/21/2017 PREOPERATIVE DIAGNOSIS: History of a left breast cancer with axillary recurrence. POSTOPERATIVE DIAGNOSIS: History of a left breast cancer with axillary recurrence. PROCEDURE: Resection of axillary recurrence of left breast cancer. ANESTHESIA: General. ANESTHESIOLOGIST: Dr. Jaquez SURGEON: Dr. Jonathan Rhodes LIME VAT TENDER: Dr. Juan Hitchcock INDICATIONS FOR PROCEDURE: The patient is a 52-year-old female who I previously treated for a left breast cancer in 2016. She underwent screening mammography and eventually a core biopsy of the left axillary lesion, found to be positive for recurrent cancer. She was counseled as to risks versus b enefits of resection and she was consented for needle localized resection of left axillary recurrent breast cancer. DESCRIPTION OF PROCEDURE: On the morning of surgery, the patient presented to [facility] where she underwent localization of the lesion performed by attending radiol ogist, Dr. Alo Monae. Subsequently, she was brought to the operating theater, placed under ge neral anesthesia. The left breast and axillary region were prepped and draped in usual sterile fash ion. An approximately 4 cm incision was made in the left axilla near the region of the previously p laced localization wire. Subcutaneous tissue was dissected with cautery. Wide circumferential diss ection of the tissue associated with the wire then took place. Specimen was elevated, transected, s ent for radiographic confirmation of capture. Capture was confirmed. The wound was then irrigated. Minimal bleeding was controlled with cautery. A #10 flat Malik-Chaudhry drain was then brought thr ough the left mid axillary line, cut to size and laid within the axilla. It was secured in place wi th 2-0 nylon suture in standard fashion. The skin was then reapproximated with a 4-0 Vicryl suture in subcuticular fashion. Dermabond was applied. Patient tolerated the procedure well. The estimat ed blood loss was 10 mL. There were no complications and the patient was transported [facility] to the recovery room. Dictated By: JONATHAN RHODES MD TL/ARMIN Conf#: [id number] DID#: [id number] CC: JUAN HITCHCOCK MD;*EndCC*
== END 2017-08-21 19:03 | disposition home or self-care (01) ==
LOC: SDS 08:41
PROVIDERS: ATTEND Surgery Surgical Oncology
DX: N64.1 Fat necrosis of breast (principal); Z85.3 Personal history of malignant neoplasm of breast; E66.9 Obesity, unspecified; Z68.30 Body mass index [BMI] 30.0-30.9, adult
CPT/HCPCS: 11406; 88307; J0690; J1100; J1170; J2250; J2405; J3010; Z7512; Z7610